=== PATIENT | female | born 1990 | race Caucasian/White ===

== ENCOUNTER → 2019-03-23 13:20 | Outpatient (CLI) | payer SELFPAY ==
[2019-03-23 14:02] LABS: Basophils % 0.3 % (0.1-2.0); Eosinophils # 0.1 K/mm3 (0.0-0.4); Eosinophils % 1.1 % (0.1-12.0); Hematocrit 38.5 % (37.0-47.0); Hemoglobin 13.1 g/dL (12.2-16.2); Lymphocytes # 2.5 K/mm3 (0.7-4.5); Mean Corpuscular Hemoglobin 31.6 pg (27.0-31.2); Mean Corpuscular Volume 92.9 fl (81-99); Mean Platelet Volume 7.5 fl (7.4-10.4); Monocytes # 0.3 K/mm3 (0.1-1.0); Neutrophils % 63.5 % (37.0-80.0); Platelet Count 321 K/mm3 (142-424); Red Blood Count 4.15 M/mm3 (4.20-5.40); Red Cell Distribution Width 12.5 % (11.5-17.5); White Blood Count 7.9 K/mm3 (4.8-10.8)
[2019-03-23 16:19] LABS: Alanine Aminotransferase 19 U/L (12-78); Albumin Level 4.1 gm/dL (3.4-5.0); Albumin/Globulin Ratio 1.3 (1.1-1.8); Alkaline Phosphatase 87 U/L (46-116); Anion Gap 13.5 mEq/L (5-15); Aspartate Amino Transferase 13 U/L (15-37); Bilirubin,Total 0.3 mg/dL (0.2-1.0); Blood Urea Nitrogen 6 mg/dL (7-18); Calcium 8.9 mg/dL (8.5-10.1); Carbon Dioxide 26 mmol/L (21.0-32.0); Chloride 103 mmol/L (98-107); Chol/HDL Ratio 3.3 (1-3.5); Cholesterol 167 mg/dL (140-200); Creatinine,Serum 0.73 mg/dL (0.55-1.02); Estimated Glomerular Filt Rate 94 ml/min (>60); GFR (African American) 114 ML/MIN (>60); Globulin 3.2 gm/dl (1.3-3.2); Glucose 114 mg/dL (74-106); HDL Cholesterol 51 mg/dL (29-89); LDL Cholesterol 101 mg/dL (0-130); Potassium 3.5 mmoL/L (3.5-5.1); Sodium 139 mmol/L (136-145); Thyroid Stimulating Hormone 1.34 uIU/ml (0.358-3.740); Total Protein,Serum 7.3 gm/dL (6.4-8.2); Triglycerides 75 mg/dL (30-200); VLDL Cholesterol 15 mg/dL (0-40)
== END ==
PROVIDERS: Visit Provider Psychiatry & Neurology Psychiatry
DX: F43.9 Reaction to severe stress, unspecified (principal)
CPT/HCPCS: 36415; 80053; 80061; 83036; 84443; 85025

== ENCOUNTER → 2019-07-11 13:11 | Outpatient (CLI) | payer OTHER, SELFPAY ==
[2019-07-11 14:03] LABS: Basophils % 0.2 % (0.1-2.0); Eosinophils # 0.1 K/mm3 (0.0-0.4); Eosinophils % 1.2 % (0.1-12.0); Hematocrit 42.8 % (37.0-47.0); Hemoglobin 13.9 g/dL (12.2-16.2); Lymphocytes % 26.6 % (10-50); Mean Corpuscular HGB Conc 32.5 g/dL (31.8-35.4); Mean Corpuscular Hemoglobin 31.7 pg (27.0-31.2); Mean Corpuscular Volume 97.6 fl (81-99); Mean Platelet Volume 8.6 fl (7.4-10.4); Monocytes # 0.6 K/mm3 (0.1-1.0); Monocytes % 7.5 % (1.7-9.3); Neutrophils # 4.9 K/mm3 (1.8-7.8); Neutrophils % 64.6 % (37.0-80.0); Platelet Count 331 K/mm3 (142-424); Red Blood Count 4.39 M/mm3 (4.20-5.40); Red Cell Distribution Width 12.5 % (11.5-17.5); White Blood Count 7.6 K/mm3 (4.8-10.8)
[2019-07-11 14:50] LABS: Alanine Aminotransferase 10 U/L (12-78); Albumin Level 4.3 gm/dL (3.4-5.0); Albumin/Globulin Ratio 1.4 (1.1-1.8); Alkaline Phosphatase 88 U/L (46-116); Anion Gap 12.4 mEq/L (5-15); Aspartate Amino Transferase 8 U/L (15-37); Bilirubin,Total 0.5 mg/dL (0.2-1.0); Blood Urea Nitrogen 8 mg/dL (7-18); Calcium 9.5 mg/dL (8.5-10.1); Carbon Dioxide 30 mmol/L (21.0-32.0); Chloride 103 mmol/L (98-107); Chol/HDL Ratio 3.3 (1-3.5); Cholesterol 177 mg/dL (140-200); Creatinine,Serum 0.65 mg/dL (0.55-1.02); Estimated Glomerular Filt Rate 108 ml/min (>60); Free T4 (Free Thyroxine) 0.84 ng/dl (0.76-1.46); GFR (African American) 130 ML/MIN (>60); Globulin 3.1 gm/dl (1.3-3.2); Glucose 81 mg/dL (74-106); HDL Cholesterol 54 mg/dL (29-89); LDL Cholesterol 105 mg/dL (0-130); Potassium 4.4 mmoL/L (3.5-5.1); Sodium 141 mmol/L (136-145); Thyroid Stimulating Hormone 0.64 uIU/ml (0.358-3.740); Total Protein,Serum 7.4 gm/dL (6.4-8.2); Triglycerides 88 mg/dL (30-200); VLDL Cholesterol 18 mg/dL (0-40)
[2019-07-12 11:08] LABS: Vitamin D 25 Hydroxy 38.3 ng/mL (30.0-100.0)
[2019-07-12 11:08] LABS: HIV Screen 4th Generation wRfx Non Reactive (Non Reactive); Hepatitis B Surface Antigen Negative (Negative); Hepatitis C Antibody <0.1 s/co ratio (0.0-0.9)
[2019-07-14 05:22] LABS: Hep A Ab, Total Positive (Negative); Hep B Core Ab, Total Negative (Negative)
[2019-07-14 06:51] LABS: Hep A Ab, IgM Negative (Negative); Hep B Surface Ab, Qual Reactive (.)
== END ==
PROVIDERS: Visit Provider Emergency Medicine
DX: J06.9 Acute upper respiratory infection, unspecified (principal); R07.81 Pleurodynia; R55 Syncope and collapse
CPT/HCPCS: 36415; 80053; 80061; 82652; 84439; 84443; 85025; 86703; 86704; 86706; 86708; 87340; 87380; 93225; 93226; G0432

== ENCOUNTER → 2019-07-20 10:42 | Outpatient (CLI) | payer OTHER, SELFPAY ==
--- NOTE | 2019-07-20 10:44 | CA_ITS ---
APPROVED REPORT EXAM: Comprehensive 2D, Doppler, and color-flow Echocardiogram Remnants Cutter: Tete Calles CRT Ht: 5 ft 7 in Wt: 133lbs BSA: 1.70 BP: 110/78 mmHg Indications: Syncope 2D Dimensions LVOT 1.80 cm (M/F) 1.5-2.5 M-Mode Dimensions RVDd 1.90 cm (0.9-2.6) LA Diam 2.60 cm (1.9-4.0) LVDd 4.80 cm (3.5-5.7) Ao Diam 1.90 cm (2.0-3.7) LVDs 3.00 cm (3.5-5.7) AV Cusp 1.80 cm (1.5-2.6) IVSd 0.40 cm (0.6-1.1) PWd 0.80 cm (0.6-1.1) EF (Teich) 67.60% FS 37.50% EDV (Teich) 108.00 mL ESV (Teich) 35.00 mL LV Diastology E/A Ratio 1.6 MED E' 12.30 (< 7 cm/sec) E'/MED E' Ratio 7.70 (>14) LAT E' 19.20 (<10 cm/sec) E/LAT E' Ratio 5.00 (>14) Aortic Valve AoV Peak Franko. 114.00 (50-130 cm/s) AO Peak GR. 5.00 mmHg Mitral Valve MV E Max Franko. 95.30 (40-130 cm/s) MV A Velocity 59.20 (40-130 cm/s) E/A Ratio 1.60 Pulmonary Valve PA Accel Time 155.00 (>120 msec) Tricuspid Valve TR P. Velocity 299.00 cm/s Left Ventricle Left atrium is normal size, left ventricle is normal size, there is no concentric left ventricular hypertrophy, visually estimated ejection fraction 55% with no regional wall motion abnormality. Diastolic parameters are within normal range. Right Ventricle Right atrium and right ventricular normal size and contractility. Aortic Valve Aortic valve is normal. Mitral Valve Mitral valve is normal, there is no mitral stenosis. There is mild mitral regurgitation. Tricuspid Valve Tricuspid valve is normal, there is mild tricuspid regurgitation. Pulmonic Valve Pulmonic valve is poorly visualized. Great Vessels Aortic root is normal size. Pericardium No significant pericardial effusion noted. Conclusion 1. Left ventricular size, preserved left ventricular systolic function, visually estimated ejection fraction 55% with no regional wall motion abnormality. Diastolic parameters are within normal range. 2. Mild mitral and tricuspid regurgitation 3. No significant pericardial effusion noted. Electronically signed by : Dmitriy Rain, 07/22/2019 17:18:47
== END ==
PROVIDERS: PCP Emergency Medicine; Visit Provider Emergency Medicine
DX: R55 Syncope and collapse (principal); R07.81 Pleurodynia; J06.9 Acute upper respiratory infection, unspecified
CPT/HCPCS: 93306

== ENCOUNTER → 2019-08-15 07:43 | Outpatient (CLI) | payer OTHER, SELFPAY ==
--- NOTE | 2019-08-15 | CA_ITS ---
APPROVED REPORT Exam: Exercise Treadmill Technologist: Maria Luz Diaz Ht: 5 ft 8 in Wt: 131 lbs BSA: 1.71 m2 HR: 70 bpm BP: 93/63 mmHg Indications: Chest pain, Syncope, Shortness of Breath Medical History Medications: None,,,,, Stress Test Details Test: Alexx HR Resting HR: 94 bpm Max Heart Rate (APMHR): 191 bpm Max HR Achieved: 165 bpm Target HR (85% APMHR): 162 bpm % of APMHR: 86 Recovery HR: 89 bpm BP Resting BP: 93.0/63.0 mmHg Max BP: 138.0/86.0 mmHg Recovery BP: 125.0/71.0 mmHg ECG Clinical Exercise duration: 12:13 min Highest Stage Achieved: Exercise capacity: 12.8 METs Stress ECG Conclusion Resting ECG: Sinus Rhythm Alexx protocol completed. Patient exercised 12:13 minutes. Test stopped due to fatigue. Symptoms: Fatigue, resolved in recovery. No chest pain or shortness of breath. Arrhythmias/Ectopy: Occasional PVC ST-T Changes: less than 1.5mm ST depression. Conclusion: Excellent physical capacity. Occasional PVC. Appropriate blood pressure response. Normal GXT. Test Summary RECOVERY 04:00 0.0 0.0 81 . 123/ 70 . . REST 01:48 0.0 0.0 94 . 93/ 63 . . Stage 1 01:00 10.0 1.7 108 . . . . Stage 1 02:00 10.0 1.7 119 . . . . Stage 1 03:00 10.0 1.7 112 . 115/ 70 . . Stage 2 01:00 12.0 2.5 113 . . . . Stage 2 02:00 12.0 2.5 114 . . . . Stage 2 03:00 12.0 2.5 115 . 118/ 82 . . Stage 3 01:00 14.0 3.4 126 . . . . Stage 3 02:00 14.0 3.4 126 . . . . Stage 3 03:00 14.0 3.4 131 . . . . Stage 4 01:00 16.0 4.2 150 . 124/ 88 . . Stage 4 02:00 16.0 4.2 154 . 124/ 88 . . Stage 4 03:00 16.0 4.2 161 . 138/ 86 . . Stage 5 00:13 18.0 5.0 162 . . . Stop exercise at 12:13 RECOVERY 01:00 0.0 0.0 136 . 92/ 70 . . RECOVERY 02:00 0.0 0.0 110 . 129/ 76 . . RECOVERY 03:00 0.0 0.0 104 . 129/ 76 . . RECOVERY 04:00 0.0 0.0 81 . 123/ 70 . . RECOVERY 04:48 0.0 0.0 100 . 125/ 71 . . Electronically signed by : Dmitriy Rain, 08/15/2019 19:20:31
--- NOTE | 2019-08-15 07:45 | CA_ITS ---
APPROVED REPORT Other Spatial Scientist: KEKE Laterality: Bilateral Study Quality: Good Indications: dizziness, syncope Doppler Spectral Velocity Analysis ECA (R) 72.30/ cm/s ECA (L) 69.10/ cm/s dICA (R) 94.30/44.80 cm/s dICA (L) 115.00/55.80 cm/s Sixto (R) 121.00/43.20 cm/s Sixto (L) 105.00/48.70 cm/s pICA (R) 95.90/33.80 cm/s pICA (L) 112.00/51.10 cm/s dCCA (R) 84.90/41.60 cm/s dCCA (L) 104.00/40.10 cm/s pCCA (R) 108.00/33.00 cm/s pCCA (L) 124.00/39.30 cm/s Vert (R) 53.40/ cm/s Vert (L) 53.40/ cm/s ICA/CCA 1.43 ICA/CCA 1.11 Findings The right carotid arterial system appeared to be normal without stenosis of the bulb or internal carotid artery. The left carotid arterial system appeared to be normal without stenosis of the bulb or internal carotid artery. Antegrade flow seen bilateral vertebral arteries. Conclusion The right carotid arterial system appeared to be normal without stenosis of the bulb or internal carotid artery. The left carotid arterial system appeared to be normal without stenosis of the bulb or internal carotid artery. Antegrade flow seen bilateral vertebral arteries. Electronically signed by : Dixon Chang, 08/15/2019 13:44:01
== END ==
PROVIDERS: PCP Emergency Medicine; Visit Provider Nurse Practitioner Family
DX: R07.89 Other chest pain (principal); R55 Syncope and collapse; R42 Dizziness and giddiness; R06.09 Other forms of dyspnea; R94.31 Abnormal electrocardiogram [ECG] [EKG]; F11.21 Opioid dependence, in remission; Z82.49 Family history of ischemic heart disease and other diseases of the circulatory system; Z87.898 Personal history of other specified conditions
CPT/HCPCS: 93017; 93880

== ENCOUNTER → 2019-11-29 09:29 | Outpatient (CLI) | payer OTHER, SELFPAY ==
--- NOTE | 2019-11-29 09:30 | MR_ITS ---
PROCEDURE: MR ANGIO HEAD WO CON CLINICAL INDICATION: atypical syncope w/recurrent symptoms Headache, blacking out, seizures, dizziness, blurred vision COMPARISON: No exams were available for comparison TECHNIQUE: 3D [id number] images obtained without contrast FINDINGS: No aneurysm, arteriovenous malformation, or major intracranial occlusive process evident. There is persistent origin of the right posterior cerebral artery as a normal variant. Single-shot view of the venous structures shows no obvious sagittal sinus thrombosis. IMPRESSION: Negative MRA of the brain Dictated by: Clarence Olsen MD 11/30/2019 13:58 Electronically signed by Clarence Olsen MD in [place] 11/30/2019 13:58
--- NOTE | 2019-11-29 09:30 | MR_ITS ---
PROCEDURE: MR HEAD/BRAIN WO/W CON CLINICAL INDICATION: atypical syncope w/recurrent symptoms Syncope, blacking out, seizures, blurred vision with headache COMPARISON: No exams were available for comparison TECHNIQUE: Routine multiplanar multi echo sequences are performed without and with gadolinium enhancement. FINDINGS: No midline shift, mass effect, intracranial hemorrhage, or hydrocephalus. No evidence of acute infarction. No enhancing lesions are evident. The hippocampal gyri are unremarkable. There is minimal asymmetry in the temporal horns of the lateral ventricles the right being very slightly larger than the left. This however is of questionable clinical significance. The cerebellopontine angles, cerebellum, and brainstem are unremarkable. There is normal tolentino-white matter differentiation with no abnormal white matter signal intensity evident. The pituitary, optic chiasm, corpus callosum, and craniocervical junction have an unremarkable appearance. Scattered skin tags are noted No mastoid effusion or sinus air-fluid level. IMPRESSION: Negative MRI of the brain with contrast. No acute intracranial findings Dictated by: Clarence Olsen MD 11/30/2019 13:11 Electronically signed by Clarence Olsen MD in [place] 11/30/2019 13:11
== END ==
PROVIDERS: PCP Emergency Medicine; Visit Provider Specialist
DX: R51 Headache (principal); F11.11 Opioid abuse, in remission; F14.11 Cocaine abuse, in remission; R55 Syncope and collapse; R56.9 Unspecified convulsions
CPT/HCPCS: 70544; 70553; A9576

== ENCOUNTER → 2019-12-12 08:12 | Outpatient (POV) | payer OTHER, SELFPAY | PROVIDERS: Visit Provider Specialist | DX: R55 Syncope and collapse (principal); R56.9 Unspecified convulsions; R51 Headache | CPT/HCPCS: 95819 ==

== ENCOUNTER → 2019-12-20 07:05 | Outpatient (CLI) | payer OTHER, SELFPAY ==
[2019-12-20 07:38] VITALS: BMI 20.5
--- NOTE | 2019-12-20 09:57 | HMH.TILT ---
Findings:: PROCEDURE: Upright Tilt Table Test REQUESTING PHYSICIAN: Shante Hirsch MD INDICATION: Sporadic syncopal episodes over the past 10 months. MEDS: Topiramate 100 mg QHS for migraines. No beta blockers. PRE-TEST VITAL SIGNS (supine): BP 99/59, HR 75 NSR, O2 sats 99%. PROCEDURE SUMMARY: Patient was prepared per protocol. She was then tilted into the upright position at 85 degrees for a total of 40 minutes with the test being terminated due to back pain. She had no syncope or near syncope. She complained of some brief numbness and tingling in her finger tips about 5 minutes after being placed in the upright position. Approximately 20 minutes after being tilted upright she complained of some mild lightheadedness that lasted for about 10 minutes. She had only mild changes in her blood pressure and heart rate. Her lowest BP was 95/51 which was associated with the beginning of her lightheadedness and coincided with a heart rate of 96 bpm). Maximum BP was 113/78. Minimum heart rate was 85 bpm at the start of test and not associated with any symptoms. Maximum HR was 101 bpm, occurring after 30 minutes being upright and was no associated with any symptoms. Her rhythm was normal sinus throughout. O2 sats remained in the high 90s throughout. COMPLICATIONS: None. CONCLUSION: Unremarkable upright TTT.
== END ==
PROVIDERS: PCP Emergency Medicine; Visit Provider Specialist
DX: R51 Headache (principal); R55 Syncope and collapse; R56.9 Unspecified convulsions
CPT/HCPCS: 93660

== ENCOUNTER 2020-08-15 14:13 | Emergency (ER) | payer OTHER, SELFPAY ==
[2020-08-15 15:03] VITALS: BP 103/70; PULSE 65; RESP 19; TEMP 36.8; O2SAT 98; BMI 19.0
--- NOTE | 2020-08-15 15:30 | HMH.EDUTC ---
[facility] [place] Clinical Impression: Viral syndrome Pharyngitis Qualifiers: Pharyngitis/tonsillitis etiology: unspecified etiology Qualified Code(s): J02.9 - Acute pharyngitis, unspecified Disposition: Home, Self-Care Condition on Discharge: Good Instructions: DI for Pharyngitis/Tonsillopharyngitis -- Adult, DI for Viral Syndrome Additional Instructions: Drink plenty of fluids. Take tylenol or ibuprofen for pain or fever. Take the medications as directed. Follow up with your regular doctor. GO TO THE ER FOR ANY WORSENING SYMPTOMS FOLLOW THE DIRECTIONS ON THE COVID-19 HAND OUT THAT WE GAVE YOU REGARDING SELF-ISOLATION UNTIL YOU KNOW YOUR COVID-19 RESULTS Prescriptions: Ondansetron [Zofran 4mg ODT] 4 mg PO Q8HP PRN #20 tab.rapdis PRN Reason: Nausea Transmission Status: Received by [facility] Azithromycin [Z-Bernardo 250mg Tab*] 250 mg PO UD DOSE PK #6 tab Transmission Status: Received by [facility] Referrals: PCP,No [Primary Care Provider] - Time of Disposition: 15:35 Medical Decision Making - Medical Records Medical records reviewed: No: I reviewed the patient's medical records. - Fer Inquiry Pt receiving controlled substance: No Vital Signs: 08/15/20 15:03 08/15/20 15:41 Temperature 98.3 F 98.3 F Temperature Source Oral Oral Pulse Rate 65 Pulse Rate [Radial] 65 Respiratory Rate 19 19 Blood Pressure 103/70 L Blood Pressure [Right Arm] 103/70 L Blood Pressure Mean [Right Arm] 81 Blood Pressure Source Automatic Cuff Blood Pressure Source [Right Arm] Automatic Cuff Blood Pressure Position Sitting Blood Pressure Position [Right Arm] Sitting 02 Sat by Pulse Oximetry 98 Oxygen Delivery Method Room Air Room Air - Lab Data Lab results reviewed: Yes: I reviewed the patient's lab results. Lab Results 08/15/20 15:00: Influenza Type A Ag Negative, Influenza Type B Ag Negative 08/15/20 15:00: Strep Scn Rapid Clinic Negative Orders (Tests/Meds): ORDERS Category Date Time Status Strep Screen Confirmation Stat Micro 08/15/20 15:00 [place] [facility] [place] - General Stated complaint: sore throat, ear pain Time Seen by Provider: 08/15/20 15:30 Mode of Arrival: Ambulatory Source of Information: Patient Limitations: No Limitations Description of Symptoms (Recalled from Triage Doc. by RN): vomiting, weak, sore throat, ear ache, headache since this morning. HEENT Symptoms (Recalled from RN notes): Yes Resp Symptoms (Recalled from RN notes): No Skin Symptoms (Recalled from RN notes): No MS Symptoms (Recalled from RN notes): No Functional Status (Recalled from RN notes): wnl - History of Present Illness Provider Complaint: She c/o sore throat for the past 2 days. She also c/o chilling and low grade fever. She denies any known contact with covid-19. - Related Data Previous Rx's Medication Instructions Recorded topiramate 25 mg tablet 100 mg PO QHS #120 tab 12/26/19 Azithromycin [Z-Bernardo 250mg Tab*] 250 mg PO UD DOSE PK #6 tab 08/15/20 Ondansetron [Zofran 4mg ODT] 4 mg PO Q8HP PRN #20 tab.rapdis 08/15/20 Allergies Allergy/AdvReac Type Severity Reaction Status Date / Time No Known Allergies Allergy Verified 12/26/19 16:23 - Worker's Comp Is this a Worker's Comp case?: No [facility] History - Hepatitis A Screen Drug use history?: No High risk sexual behaviors?: No History of sexually transmitted infection?: No Currently employed?: No Childcare worker?: No Do you have indoor plumbing?: Yes Do you have electricity?: Yes Attestation statement:: This patient has been screened for Hepatitis A risk factors. I have reviewed the patient's past medical history: Yes Medical History: Reports:: Anxiety, Depression, Palpitations Denies:: Diabetes Mellitus Type 1, Diabetes Mellitus Type 2 Other Surgeries: Yes: , Hysterectomy-Total, Hysterectomy-Partial, Tubal Ligation, Other Amputation: No Fractures: No Com
[2020-08-15 15:41] VITALS: BP 103/70; PULSE 65; RESP 19; TEMP 36.8; O2SAT 98
[2020-08-15 19:43] LABS: UTC Strep Screen (Rapid) Negative (Negative)
[2020-08-15 19:44] LABS: UTC Influenza A Antigen Negative (Negative); UTC Influenza B Antigen Negative (Negative)
== END 2020-08-15 15:42 | disposition home or self-care (01) ==
PROVIDERS: Emergency Provider Nurse Practitioner Family
DX: B34.9 Viral infection, unspecified (principal); J02.9 Acute pharyngitis, unspecified; Z20.828 Contact with and (suspected) exposure to other viral communicable diseases; F17.210 Nicotine dependence, cigarettes, uncomplicated; F11.21 Opioid dependence, in remission; Z90.710 Acquired absence of both cervix and uterus; Z79.899 Other long term (current) drug therapy; F41.8 Other specified anxiety disorders
CPT/HCPCS: 87804; 87880; 99202; U0003

== ENCOUNTER 2021-03-18 10:51 | Emergency (ER) | payer OTHER, SELFPAY ==
--- NOTE | 2021-03-18 11:39 | HMH.EDUTC ---
[facility] [place] Clinical Impression: Viral syndrome Disposition: Home, Self-Care Condition on Discharge: Good Instructions: DI for COVID-19 (Suspected or Confirmed ), Preventing the Spread of Coronavirus Discharge Instructions Additional Instructions: Drink plenty of fluids. Take tylenol or ibuprofen for pain or fever. Take the medications as directed. Follow up with your regular doctor. GO TO THE ER FOR ANY WORSENING SYMPTOMS FOLLOW THE DIRECTIONS ON THE COVID-19 HAND OUT THAT WE GAVE YOU REGARDING SELF-ISOLATION UNTIL YOU KNOW YOUR COVID-19 RESULTS Prescriptions: Ondansetron [Zofran 4mg ODT] 4 mg PO Q8HP PRN #12 tab.rapdis PRN Reason: Nausea Transmission Status: Received by [facility] Referrals: Kendal Nelson PA [Primary Care Provider] - Forms: Work/School Release Time of Disposition: 11:57 Medical Decision Making - Medical Records Medical records reviewed: No: I reviewed the patient's medical records. - Fer Inquiry Pt receiving controlled substance: No Vital Signs: 03/18/21 11:44 03/18/21 12:05 Temperature 98 F 98 F Temperature Source Oral Pulse Rate 73 Pulse Rate [Right] 75 Respiratory Rate 20 16 Blood Pressure 111/68 Blood Pressure [Right Arm] 105/69 L Blood Pressure Mean [Right Arm] 81 Blood Pressure Source [Right Arm] Automatic Cuff Blood Pressure Position [Right Arm] Sitting 02 Sat by Pulse Oximetry 98 [facility] [place] - General Stated complaint: covid exposure Time Seen by Provider: 03/18/21 11:40 - History of Present Illness Provider Complaint: She states that she was exposed to covid last week. Over the past 2 days she has began to have body aches, nasal drainage and feeling very bad. - Related Data Previous Rx's Medication Instructions Recorded buspirone 7.5 mg tablet 7.5 mg PO BID #180 tab 01/03/21 citalopram 20 mg tablet 20 mg PO DAILY 90 Days #90 tab 01/03/21 fexofenadine 180 mg tablet 180 mg PO HS #90 tab 01/03/21 hydroxyzine HCl 25 mg tablet 25 mg PO BID PRN #180 tab 01/03/21 naproxen 500 mg tablet,delayed 500 mg PO BID #180 tab 01/03/21 release omeprazole 10 mg capsule,delayed 20 mg PO DAILY #90 cap 01/03/21 release trazodone 50 mg tablet 75 mg PO HS #90 tab 01/03/21 ferrous sulfate 325 mg (65 mg 325 mg PO DAILY #30 tab 01/10/21 iron) tablet Ondansetron [Zofran 4mg ODT] 4 mg PO Q8HP PRN #12 tab.rapdis 03/18/21 Allergies Allergy/AdvReac Type Severity Reaction Status Date / Time No Known Allergies Allergy Verified 03/18/21 11:48 [facility] History - Hepatitis A Screen Attestation statement:: This patient has been screened for Hepatitis A risk factors. I have reviewed the patient's past medical history: Yes Medical History: Reports:: Anxiety, Depression, Palpitations Denies:: Diabetes Mellitus Type 1, Diabetes Mellitus Type 2 Other Surgeries: Yes: , Hysterectomy-Total, Hysterectomy-Partial, Tubal Ligation, Other Amputation: No Fractures: No Comment: kidney stone, loop recorder - Social History Smoking Status: Current every day smoker Tobacco Type: cigarettes # Packs/Day (cigarettes): 1 #Yrs smoked (if former smoker): 17 Alcohol Intake: never Alcohol Intake Frequency:: other Substance Use Type: former substance user, heroin Occupational Status: other Housing: house Household Members: family - Psychiatric History Pschychiatric History:: Reports:: Anxiety, Depression Family Hx:: Heart Attack Comment: Mother- of [id number] [employer] history: Tubal Ligation ROS Obtained: Yes All systems reviewed & no additional complaints - Constitutional Constitutional: Reports system reviewed and no additional complaints, except as docu - Eyes Eyes: Reports system reviewed and no additional complaints, except as docu - ENT Ears, Nose, Mouth, and Throat: Reports system reviewed and no additional complaints, except as docu - Cardiovascular Cardiovascular: Reports system reviewe
[2021-03-18 11:44] VITALS: BP 105/69; PULSE 75; RESP 20; TEMP 36.6; O2SAT 98; BMI 19.8
[2021-03-18 12:05] VITALS: BP 111/68; PULSE 73; RESP 16; TEMP 36.6
== END 2021-03-18 12:06 | disposition home or self-care (01) ==
PROVIDERS: Emergency Provider Nurse Practitioner Family; PCP Physician Assistant
DX: Z20.822 Contact with and (suspected) exposure to COVID-19 (principal); B34.9 Viral infection, unspecified; R00.2 Palpitations; F41.8 Other specified anxiety disorders; F17.210 Nicotine dependence, cigarettes, uncomplicated
CPT/HCPCS: 99202; G0463; U0003